=== PATIENT | female | born 1990 | race Caucasian/White ===

== ENCOUNTER 2024-02-29 15:06 | Emergency (ER) | payer SELFPAY ==
[2024-02-29 15:19] VITALS: BP 127/77; PULSE 78; RESP 17; TEMP 36.8; O2SAT 99; BMI 21.9
--- NOTE | 2024-02-29 15:39 | ED_ITS ---
HPI - Female Genitourinary General: Chief complaint: Urogenital-Female Stated complaint: pain in private area Time Seen by Provider: 02/29/24 15:18 Source: patient Mode of arrival: ambulatory Limitations: no limitations History of Present Illness: 33-year-old female states she has been h aving intercourse with a new partner this week the last time was states she has been having severe pelvic pain over the last 2 days. She states she feels like she may have a tear she had some slight bleeding she is also had some slight whitish discharge. Denies any fever denies any vomiting or diarrhea. Associated symptoms: Reports vaginal discharge; Deny headache(s) or nausea Review of Systems Const: Denies: fever(s), chills, body aches or change in appetite ENMT: Denies: throat pain or dental pain Card: Denies: chest pain Resp: Denies: dyspnea GI: Denies: nausea, vomiting or diarrhea : Reports: dysuria and vaginal discharge Musc: Denies: neck pain or back pain Skin/Breast: Denies: rash Neuro: Denies: headache(s) Physical Exam Const: COMMON NORMALS: no acute distress, patient oriented x3 and healthy appearing HENMT: COMMON NORMALS: normocephalic and atraumatic HEAD & SCALP: normocephalic and atraumatic Neck/C-Spine: COMMON NORMALS: full ROM and supple Chest: COMMONS NORMALS: normal inspection of the chest Resp: COMMON NORMALS: normal respiratory effort Cardio: COMMON NORMALS: regular rate, regular rhythm and No murmurs present (Cardio) RATE: regular rate RHYTHM: regular rhythm GI: COMMON NORMALS: Normal to inspection, nondistended, normoactive bowel sounds present, Soft to palpation, non-tender and no masses PALPATION: Yes Soft to palpation : OTHER: Multiple herpetic lesions noted on vulva and vagina Extremity: COMMON NORMALS: normal to inspection and full ROM Neuro: COMMON NORMALS: patient oriented x3, moves all extremities and no focal motor deficits Psych: COMMON NORMALS: mental status grossly normal, Normal thought process present and cooperative THOUGHT PROCESS: Normal thought process present Skin: COMMON NORMALS: no rashes or lesions noted and no wounds GENERAL SKIN EXAM: no rashes or lesions noted Course Vital Signs: Vital signs: Vital Signs Temperature 98.3 F 02/29/24 15:19 Pulse Rate 78 05/12/24 15:19 Respiratory Rate 17 02/29/24 15:19 Blood Pressure 127/77 02/29/24 15:19 Pulse Oximetry 99 02/29/24 15:19 Oxygen Delivery Me thod Room Air 02/29/24 15:19 MDM - Female Medical Decision Making Patient presents with pelvic pain likely from new onset herpes. Will test for gonorrhea and chlamydia as well but we will go ahead and treat with Rocephin azithromycin here we will place her on acyclovir along with pain medicine she is to follow-up with PCP and return if worsening she understands agrees to plan Medical Records I reviewed the patient's medical records. Lab Data I reviewed the patient's lab results. Laboratory Results HCG, Qual Negative (Negative) 02/29/24 16:15 Urine Color Yellow (Yellow) 02/29/24 16:15 Urine Appearance Hazy (CLEAR) A 02/29/24 16:15 Urine pH 6 (5-7) 02/29/24 16:15 Ur Specific [place] 1.020 (1.005-1.030) 02/29/24 16:15 Urine Protein Neg (Negative) 02/29/24 16:15 Urine Glucose (UA) Norm (Normal) 02/29/24 16:15 Urine Ketones 1+ (Negative) H 02/29/24 16:15 Urine Blood 2+ (Negative) H 02/29/24 16:15 Urine Nitrate Negative (Negative) 02/29/24 16:15 Urine Bilirubin 1+ (Negative) H 02/29/24 16:15 Urine Urobilinogen Norm mg/dL (Negative) 02/29/24 16:15 Ur Leukocyte Esterase 2+ (Negative) H 02/29/24 16:15 Urine RBC 10-15 /hpf (0-2) H 02/29/24 16:15 Urine WBC Too numerous to cnt /hpf (0-5) H 02/29/24 16:15 Ur Squamous Epith Cells 5-10 /hpf (0-5) H 02/29/24 16:15 Amorphous Sediment Not Reportable 02/29/24 16:15 Urine Bacteria 2+ /hpf (NONE) H 02/29/24 16:15 No radiology studies performed this visit Discharge Plan Discharge Patient Disposition: Home Clinical Impression: Herpes genitalis in women Condition: Stable Prescriptions: New hydrocodone-acetaminophen 5-325 mg tablet 1 tab PO Q6H PRN (Reason: pain) Qty: 14 0RF ondansetron 4 mg tablet,disintegrating 4 mg PO Q6H PRN (Reason: nausea and vomiting) Qty: 14 0RF valacyclovir 1 gram tablet 1,000 mg PO Q8H 10 Days Qty: 30 0RF No Action acetaminophen 325 mg Tablet 975 mg PO QID PRN (Reason: Pain) acetaminophen-codeine 300-30 mg tablet 1 - 2 tab PO Q6H PRN (Reason: Pain) Discharge Orders: Discharge ED (Routine); Ordered 02/29/24 Ordered By: Usman Rossi Discharge Diet: Advance as tolerated Discharge Activity: Resume usual activity Patient Instructions: Genital Herpes - Female, Genital Herpes Infection (ED) Coding Level of Care Code ED [employer] for Neymar Massey
[2024-02-29] MEDS: HYDROcodone-acetaminophen 5-325 mg Tablet 1 TAB PO (15:56)
[2024-02-29 16:46] LABS: HCG Qualitative Urine. Negative (Negative)
[2024-02-29 16:47] LABS: Glucose Urine UA Norm (Normal); Ketones Urine 1+ (Negative); Protein Urine Neg (Negative); Urine Appearance Hazy (CLEAR); Urine Color Yellow (Yellow); pH Urine 6 (5-7)
[2024-02-29 16:48] LABS: Add Urine Culture? Yes; Add Urine Microscopic? YES; Bacteria Urine 2+ /hpf; Bilirubin Urine 1+ (Negative); Blood Urine 2+ (Negative); Leukocyte Esterase Urine 2+ (Negative); Nitrate Urine Negative (Negative); Urobilinogen Urine Norm (Negative); WBC Urine TOO NUMEROUS TO CNT /hpf (0-5)
[2024-02-29] MEDS: azithromycin 250 mg Tablet 1000 MG PO (17:13)
[2024-02-29] MEDS: cefTRIAXone 250 MG in water for injection-sterile 0.9 ML 0.900000000000000022 MG IM (17:14)
[2024-02-29 17:16] VITALS: BP 114/66; PULSE 68; O2SAT 98
[2024-02-29 17:41] VITALS: BP 114/66; PULSE 66; O2SAT 98
[2024-03-02 22:50] LABS: Chlamydia Trachomatis RNA TMA NOT DETECTED (NOT DETECTED); Neisseria Gonorrhoeae RNA, TMA NOT DETECTED (NOT DETECTED)
== END 2024-02-29 17:40 | disposition home or self-care (01) ==
PROVIDERS: Emergency Provider Emergency Medicine
DX: A60.00 Herpesviral infection of urogenital system, unspecified (principal)
CPT/HCPCS: 81001; 81025; 87086; 87491; 87591; 96372; 99284; E0352; J0696; Q0144